=== PATIENT | female | born 1995 ===

== ENCOUNTER 2021-12-27 09:17 | Outpatient (CLI) | payer OTHER | END 2021-12-27 10:29 | disposition home or self-care (01) | LOC: PRENATAL 09:17 | PROVIDERS: ATTEND Obstetrics & Gynecology Maternal & Fetal Medicine | DX: O36.80X0 Pregnancy with inconclusive fetal viability, not applicable or unspecified (principal); Z36.1 Encounter for antenatal screening for raised alphafetoprotein level; Z3A.11 11 weeks gestation of pregnancy ==